=== PATIENT | male | born 1990 | race African-American/Black ===

== ENCOUNTER 2017-12-15 01:53 | Emergency (ER) | payer SELFPAY ==
[2017-12-15] MEDS ORDERED: Sodium Chloride 0.9% 1,000 ML ONE (02:31)
[2017-12-15 07:09] LABS: Cocaine Metabolite Screen Detected (NotDetected); Phencyclidine (PCP) Detected (NotDetected); THC/Cannabinoid Screen Not Detected (NotDetected)
[2017-12-15 07:10] LABS: Amphetamine Not Detected (NotDetected); Barbiturates Screen Not Detected (NotDetected); Benzodiazepine Screen Not Detected (NotDetected); Medtox Control Line Valid? VALID (VALID); Methadone Not Detected (NotDetected); Methamphetamine Detected (NotDetected); Opiate Screen Not Detected (NotDetected); Oxycodone Screen Not Detected (NotDetected); Tricyclic Screen Not Detected (NotDetected)
[2017-12-15 07:12] LABS: Hemoglobin 14.3 g/dL (14.0-18.0); Mean Corpuscular Volume 84.9 fL (80.0-94.0); RBC Distribution Width 11.8 % (11.5-14.5); White Blood Cell (WBC) Count 7.1 thou/uL (4.8-10.8)
[2017-12-15 07:13] LABS: #Monocytes 0.4 thou/uL (0.11-0.59); #Neutrophils 5.5 thou/uL (1.40-6.50); %Basophils 2.8 % (0.0-1.0); %Eosinophils 0.5 % (0.0-10.0); %Lymphocytes 13.4 % (21.0-51.0); %Monocytes 6.2 % (0.0-10.0); %Neutrophils 77.2 % (42.0-75.0); Manual Diff?? YES; Mean Platelet Volume 7.5 fL (7.4-10.4); Platelet Count 337 thou/uL (130-400)
[2017-12-15 07:14] LABS: #Basophils 0.2 thou/uL (0.0-0.2); Band 4 % (5-11); Lymphocytes 17 % (21-51); MDiff Complete? YES; Monocytes 6 % (0-10); Neutrophil 72 % (42-75)
[2017-12-15 07:15] LABS: CKMB 1.1 ng/mL (0-6.6); PLT Morphology Comment Appears Adequate; RBC Morphology Normal; Troponin I Less than 0.010 ng/mL (< 0.028)
[2017-12-15 07:16] LABS: Anion Gap 19 mmol/L (10-20); BUN (Urea Nitrogen) 11 mg/dL (8.9-20.6); Bilirubin, Total 0.3 mg/dL (0.2-1.2); Calc. Creatinine Clearance 0 mL/min (70-130); Calcium 9.9 mg/dL (7.8-10.44); Carbon Dioxide 19 mmol/L (22-29); Chloride 107 mmol/L (98-107); Estimated GFR-MDRD 88; Glucose 121 mg/dL (70-105); Potassium 3.9 mmol/L (3.5-5.1); Protein, Total 8.1 g/dL (6.0-8.3); Sodium 141 mmol/L (136-145)
[2017-12-15 07:17] LABS: ALT (SGPT) 27 U/L (8-55); AST (SGOT) 21 U/L (5-34); Acetaminophen Less than 6.0 mcg/mL (6.0-30.0); Albumin 4.6 g/dL (3.5-5.0); Alcohol 11 mg/dL (Less than 10); Alkaline Phosphatase 66 U/L (40-150); CK (CPK) 138 U/L (30-200); Globulin 3.5 g/dL (2.4-3.5); Salicylate Less than 8.0 mg/dL (15.0-30.0)
== END 2017-12-15 04:43 ==
LOC: NAV ERS 01:53
DX: R41.82 Altered mental status, unspecified (principal)
CPT/HCPCS: 36415; 80053; 80306; 80307; 82550; 82553; 84484; 85025; 96360; J7050